=== PATIENT | female | born 1960 | race African-American/Black ===

== ENCOUNTER 2016-11-26 20:51 | Emergency (ER) | payer OTHER ==
[~2016-11-26] VITALS: Ht 167.6 cm; Wt 98.9 kg
[~2016-11-26 20:51] MED LIST: TRAM-48 PO
[2016-11-26 20:55] VITALS: BP 151/83
[2016-11-26] MEDS ORDERED: 0.9 % SODIUM CHLORIDE 10 ML DISP.SYRIN. IV PRN (21:15)
--- NOTE | 2016-11-26 21:17 | PHYS DOC ---
Past History Past Medical History: High Cholesterol, Hypothyroid, Other Past Surgical History: Cervical Fusion, Other Smoking: Non-smoker Alcohol Use: None Drug Use: None Adult General Chief Complaint Chief Complaint: LOWER EXTREMITY EDEMA HPI HPI Patient is a pleasant 56-year-old female with a history of high cholesterol, hypothyroidism, chronic lower back pain and prior surgery who presents with swelling of her lower leg since progressively gotten worse over last several weeks. She is noted increased pain and swelling her lower legs that is described as throbbing and aching is progressively gotten worse over last 4 days after traveling to and from [place]. Travel time is approximately 8 hours patient actually noted the swelling and pain in her legs prior to the travel also complaining mildly of dizziness and was almost not going to go secondary to the increasing pain in the lower legs. She describes as a dull ache worse with movements with no radiation to the back of the calves or upper legs. She denies any trauma fevers, chills, joint swelling other than the ankles , rash, prior URI symptoms or change in medications. She does have a history of hypothyroidism which is on Synthroid replacement and believes that her Synthroid as might be a little low given her continued weight gain inability to lose weight and her decreased energy. At this point she denies any chest pain, shortness of breath, lightheaded dizziness while here in the ER. She denies any trauma to her head as any other new symptoms. She does not use NSAIDs secondary to prior renal insufficiency and possible damage. She is postmenopausal and not on hormonal replacement therapy. Review of Systems Review of Systems Constitutional: Denies fever or chills does complain of fatigue and generalized weakness as well as dizziness intermittently last week. Eyes: Denies change in visual acuity, redness, or eye pain [] HENT: Denies nasal congestion or sore throat [] Respiratory: Denies cough or shortness of breath [] Cardiovascular: No additional information not addressed in HPI [] GI: Denies abdominal pain, nausea, vomiting, bloody stools or diarrhea [] : Denies dysuria or hematuria [] Musculoskeletal: Chronically has lower back pain bilateral lower ankle pain was localized swelling. Integument: Denies rash or skin lesions [] Neurologic: Denies headache, focal weakness or sensory changes [] Endocrine: Denies polyuria or polydipsia [] Current Medications Current Medications Current Medications Medications (Trade) Dose Ordered Sig/Angel Start Time Stop Time Status Last Admin Dose Admin Sodium Chloride (Normal Saline Flush) 10 ml QSHIFT PRN 11/26/16 21:15 Allergies Allergies Allergies Coded Allergies Type Severity Reaction Last Updated Verified NSAIDS (Non-Steroidal Anti-Inflamma Allergy Intermediate 11/26/16 Yes Ptavvff-Ulf-Kfi Reductase Inhibitor Allergy Intermediate 11/26/16 Yes hydrocodone Allergy Intermediate 11/26/16 Yes Physical Exam Physical Exam Constitutional: Well developed, well nourished, no acute distress, non-toxic appearance. [] HENT: Normocephalic, atraumatic, bilateral external ears normal, oropharynx moist, no oral exudates, nose normal. [] Eyes: PERRLA, EOMI, conjunctiva normal, no discharge. [] Neck: Normal range of motion, no tenderness, supple, no stridor. [] Cardiovascular:Heart rate regular rhythm, no murmur [] Lungs & Thorax: Bilateral breath sounds clear to auscultation [] Abdomen: Bowel sounds normal, soft, no tenderness, no masses, no pulsatile masses. [] Skin: Warm, dry, no erythema, no rash. [] Back: No tenderness, no CVA tenderness. [] Extremities: She has tenderness in the ankles bilaterally with localized edema + 2 with +2 capillary Refill +2 peripheral pulses at the dorsalis pedis and posterior tibialis. Neurologic: Alert and oriented X 3, normal motor function, normal sensory function, no focal deficits noted. [] Psychologic: Affect normal, judgement normal, mood normal. [] Current Patient Data Lab Results Laboratory Tests Test 11/26/16 21:30 11/26/16 22:10 White Blood Count 5.8 x10^3/uL (4.0-11.0) Red Blood Count 4.31 x10^6/uL (3.50-5.40) Hemoglobin 13.3 g/dL (12.0-15.5) Hematocrit 39.6 % (36.0-47.0) Mean Corpuscular Volume 92 fL (79-100) Mean Corpuscular Hemoglobin 31 pg (25-35) Mean Corpuscular Hemoglobin Concent 34 g/dL (31-37) Red Cell Distribution Width 15.3 % (11.5-14.5) H Platelet Count 273 x10^3/uL (140-400) Neutrophils (%) (Auto) 47 % (31-73) Lymphocytes (%) (Auto) 37 % (24-48) Monocytes (%) (Auto) 14 % (0-9) H Eosinophils (%) (Auto) 1 % (0-3) Basophils (%) (Auto) 1 % (0-3) Neutrophils # (Auto) 2.7 x10^3uL (1.8-7.7) Lymphocytes # (Auto) 2.2 x10^3/uL (1.0-4.8) Monocytes # (Auto) 0.8 x10^3/uL (0.0-1.1) Eosinophils # (Auto) 0.1 x10^3/uL (0.0-0.7) Basophils # (Auto) 0.0 x10^3/uL (0.0-0.2) Sodium Level 139 mmol/L (136-145) Potassium Level 4.2 mmol/L (3.5-5.1) Chloride Level 104 mmol/L (98-107) Carbon Dioxide Level 28 mmol/L (21-32) Anion Gap 7 (6-14) Blood Urea Nitrogen 18 mg/dL (7-20) Creatinine 1.0 mg/dL (0.6-1.0) Estimated GFR (Cockcroft-Gault) 69.7 BUN/Creatinine Ratio 18 (6-20) Glucose Level 108 mg/dL (70-99) H Calcium Level 8.8 mg/dL (8.5-10.1) Magnesium Level 2.1 mg/dL (1.8-2.4) Total Bilirubin 0.2 mg/dL (0.2-1.0) Aspartate Amino Transferase (AST) 21 U/L (15-37) Alanine Aminotransferase (ALT) 35 U/L (14-59) Alkaline Phosphatase 123 U/L (46-116) H Troponin I Quantitative < 0.017 ng/mL (0-0.055) KJ-Sjc-L-Type Natriuretic Peptide 58 pg/mL (0-124) Total Protein 7.5 g/dL (6.4-8.2) Albumin 3.5 g/dL (3.4-5.0) Albumin/Globulin Ratio 0.9 (1.0-1.7) L EKG EKG [] Radiology/Procedures Radiology/Procedures [] Some results reviewed by me there is no acute venous thrombi embolism bilaterally in each leg. Course & Med Decision Making Course & Med Decision Making Pertinent Labs and Imaging studies reviewed. (See chart for details) reviewed vital signs nursing note and laboratory results. Patient presents with peripheral edema considered the following differential diagnosisMy differential diagnosis for peripheral edema included but not limited to the following. Renal sodium retention, nephrotic syndrome, idiopathic edema secondary to volume to patient, drug-induced edema concerning vasodilators, NSAIDs, venous insufficiency or thromboembolism, pitting edema from lymphatic obstruction or hypothyroidism, ascites associated with abdominal distention, central venous pressure increases secondary to cirrhosis, congestive heart failure, or pericardial heart disease. She does not present as congestive heart failure or cirrhosis or liver failure or renal disease or NSAIDs as she has not used them secondary to renal insufficiency in the past. There is no evidence of venous some embolism at this time. Patient is likely food spacing secondary to immobility and possibly sodium intake. Patient be followed by her primary care doctor for continued evaluation of this lower extremity edema bilaterally which may be related to diet more than anything. Impression peripheral edema unclear etiology possible sodium retention. Disposition: Follow-up with PCP in 24-48 hours referral to nephrology continued evaluation. Recommended return for increasing pain soft tissue swelling or questions. [] Dragon Disclaimer Dragon Disclaimer This chart was dictated in whole or in part using Voice Recognition software in a busy, high-work load, and often noisy Emergency Department environment. It may contain unintended and wholly unrecognized errors or omissions. Departure Departure: Impression: Primary Impression: Peripheral edema Disposition: HOME, SELF-CARE Condition: IMPROVED Referrals: BI ONEAL DO (PCP) Patient Instructions: Peripheral Edema Additional Instructions: Please be careful with her diet and watch, sodium use eat. Please return for new or increasing symptoms, shortness of breath, increasing pain with localized swelling to the leg or feel any questions or concerns. Scripts Tramadol Hcl (TRAMADOL HCL) 50 Mg Tablet 50 MG PO PRN Q6HRS Y for PAIN for 7 Days, TAB Prov: MAILE GOMEZ MD 11/26/16 MAILE GOMEZ MD November 26, 2016 21:17
[2016-11-26] MEDS ORDERED: IV NORMAL SALINE 1,000ML 1,000 ML IV SCH (21:30)
[2016-11-26 21:48] LABS: BASO % 1 % (0-3); EOS # 0.1 x10^3/uL (0.0-0.7); EOS % 1 % (0-3); HEMATOCRIT 39.6 % (36.0-47.0); HEMOGLOBIN 13.3 g/dL (12.0-15.5); LYMPH # 2.2 x10^3/uL (1.0-4.8); LYMPH % 37 % (24-48); MEAN CORPUSCULAR HEMOGLOBIN 31 pg (25-35); MEAN CORPUSCULAR HGB CONC 34 g/dL (31-37); MEAN CORPUSCULAR VOLUME 92 fL (79-100); MONO # 0.8 x10^3/uL (0.0-1.1); MONO % 14 % (0-9); NEUT # 2.7 x10^3uL (1.8-7.7); NEUT % 47 % (31-73); PLATELET COUNT 273 x10^3/uL (140-400); RED BLOOD COUNT 4.31 x10^6/uL (3.50-5.40); RED CELL DISTRIBUTION WIDTH 15.3 % (11.5-14.5); WHITE BLOOD COUNT 5.8 x10^3/uL (4.0-11.0)
[2016-11-26 22:49] LABS: ALBUMIN 3.5 g/dL (3.4-5.0); ALBUMIN/GLOBULIN RATIO 0.9 (1.0-1.7); CALCIUM 8.8 mg/dL (8.5-10.1); GFR 69.7; MAGNESIUM 2.1 mg/dL (1.8-2.4); POTASSIUM 4.2 mmol/L (3.5-5.1); TOTAL BILIRUBIN 0.2 mg/dL (0.2-1.0); TOTAL PROTEIN 7.5 g/dL (6.4-8.2)
--- NOTE | 2016-11-26 22:59 | RAD ---
Bilateral lower extremity venous doppler ultrasound History: Bilateral leg pain and ankle swelling for 2 weeks, recent travel Comparison: None Findings: Multiple grayscale, color, and duplex spectral analysis sonographic images were acquired of the bilateral lower extremity veins to evaluate for the presence of DVT. There is normal phasicity. Normal compression, color-flow, and augmentation is demonstrated from the bilateral common femoral to the popliteal veins. There is normal color flow of the proximal greater saphenous and profunda femoris veins. There is normal color flow of segments of the calf veins. Impression: 1. There is no evidence of deep venous thrombosis from the bilateral common femoral to popliteal veins. Electronically signed by: Abdirashid Walton MD (11/26/2016 10:57 PM)
[2016-11-26] MEDS ORDERED: TRAM50TA PO (23:28)
--- NOTE | 2016-11-27 03:49 | EKG ---
[address] [address] Test Date: 2016-11-26 Test Time: 21:20:33 Pat Name: MARYCARMEN SELBY Department: Room: Gender: F Field Counsel: : [id number] Requested By: MAILE GOMEZ Order Number: [id number] Reading MD: Bimal Giraldo Measurements Intervals [place] Rate: 73 P: 66 NH: 180 QRS: 40 QRSD: 86 T: 36 QT: 384 QTc: 427 Interpretive Statements SINUS RHYTHM Electronically Signed On 11-28-2016 10:34:38 CDT by Bimal Giraldo
--- NOTE | 2016-11-27 08:35 | RAD ---
AP chest. History: Dizziness with leg swelling AP view was taken of the chest. Heart is normal in size. There is no pleural effusion. Lungs are clear. Impression: 1. No acute chest disease.
== END 2016-11-27 00:19 | disposition home or self-care (01) ==
LOC: ER 20:51
DX: R60.0 Localized edema (principal); R53.1 Weakness; G89.29 Other chronic pain; E03.9 Hypothyroidism, unspecified; E78.00 Pure hypercholesterolemia, unspecified; Z88.6 Allergy status to analgesic agent; Z88.8 Allergy status to other drugs, medicaments and biological substances
CPT/HCPCS: 36415; 71010; 80053; 83735; 83880; 84443; 84484; 85027; 93005; 93970; 99285-25